=== PATIENT | female | born 1975 | race Caucasian/White ===

== ENCOUNTER → 2017-06-10 | Outpatient (CLI) | payer OTHER ==
--- NOTE | 2017-06-11 07:57 | MAMMOGRAPHY REPORT ---
BILATERAL DIGITAL SCREENING MAMMOGRAM TOMOSYNTHESIS WITH CAD: 06/10/2017 CLINICAL HISTORY: Routine screening examination. TECHNIQUE: Breast tomosynthesis in addition to standard 2D mammography was performed. Current study was also evaluated with a Computer Aided Detection (CAD) system. COMPARISON: Comparison is made to exams dated: 11/03/2015 mammogram, 07/05/2014 mammogram - [facility], 05/12/2013 mammogram, and 09/15/2009 mammogram. BREAST COMPOSITION: There are scattered areas of fibroglandular density in both breasts. FINDINGS: The parenchymal pattern is unchanged. No developing mass, architectural distortion or clus ter of suspicious microcalcifications is seen in either breast. IMPRESSION: ACR BI-RADS CATEGORY 2: BENIGN There is no mammographic evidence of malignancy. A 1 year screening mammogram is recommended. The pa tient will receive written notification of the results. Approximately 10% of breast cancers are not detected with mammography. A negative mammographic report should not delay biopsy if a clinically suggestive mass is present. Rama Roque M.D. ay/:06/10/2017 15:47:11 Tool And Die Assembler: Phuong READ(Robert)(Pritesh), [facility] letter sent: Normal 1/2 BI-RADS Code: ACR BI-RADS Category 2: Benign
== END | disposition home or self-care (01) ==
LOC: C.MAMM 14:56
PROVIDERS: ATTEND Obstetrics & Gynecology
DX: Z12.31 Encounter for screening mammogram for malignant neoplasm of breast (principal)

== ENCOUNTER → 2017-07-21 | Outpatient (CLI) | payer OTHER ==
[~2017-07-21] MED LIST: DOXY50CA26 PO
== END | disposition home or self-care (01) ==
LOC: C.PATHSPEC 17:40
PROVIDERS: ATTEND Obstetrics & Gynecology
DX: N93.9 Abnormal uterine and vaginal bleeding, unspecified (principal)

== ENCOUNTER → 2017-07-28 | Day surgery (SDC) | payer OTHER ==
[2017-07-25 08:03] VITALS: Ht 160 cm; Wt 90.9 kg
--- NOTE | 2017-07-26 12:16 | HISTORY & PHYSICAL EXAMINATION ---
DATE OF ADMISSION: 07/28/2017 The patient is for surgery on 07/28/2017. CHIEF COMPLAINT: Abnormal uterine bleeding. HISTORY OF PRESENT ILLNESS: The patient is a 41-year-old white female 2, para 2 who is status post tubal. The patient has been having abnormal uterine bleeding over the past year with as much as 1 week of light bleeding before the onset of her menses which are lasting now at least 1 week. She is passing clots with her menses. She has been noted to have thickened endometrial lining on ultrasound September 2015 and again in June 2017. Hysterosonogram January 2016 failed to show any endometrial mass. An endometrial biopsy was done 07/21/2017 and this was read as proliferative endometrium. Pap smear done May 2017 was negative. The patient does not want to use hormone therapy. She prefers surgical treatment of her bleeding and wishes to undergo endometrial ablation. ALLERGIES: THE PATIENT REPORTS ALLERGIES TO DEMEROL AND MORPHINE DERIVATIVES. MEDICATIONS: The patient takes doxycycline 100 mg daily. PAST SURGICAL HISTORY: She has had a tubal ligation. In addition, cholecystectomy, appendectomy as well as cryosurgery of her cervix. She has also undergone diagnostic laparoscopy. She has had dental extractions as well. She is taking the doxycycline for rosacea. ILLNESSES: Beyond her abnormal uterine bleeding the patient does report migraine headaches. She also has a history of anxiety. FAMILY HISTORY: Her mother was diagnosed with breast cancer at age 48 and from that disease. Her paternal grandfather had colon cancer. There is no family history of uterine cancer. SOCIAL HISTORY: The patient is . She has smoked in the past, but is not a current smoker. She reports social alcohol use. PHYSICAL EXAMINATION: VITAL SIGNS: Height 5 foot 3 inches, weight 199 pounds, blood pressure 120/78. HEAD, EYES, EARS, NOSE, AND THROAT: Grossly within normal limits. NECK: Supple without masses. CHEST: Her lungs are clear without wheezing. HEART: Regular rate and rhythm. No murmurs, gallops or rubs. ABDOMEN: Soft and nontender. PELVIC: External genitalia normal. Vagina pink and stimulated. Cervix pink and closed with no lesions visible. Uterus within normal limits size, nontender, adnexa nontender with no masses palpable. EXTREMITIES: No cyanosis, clubbing or edema. IMPRESSION: A 41-year-old white female 2, para 2 with abnormal uterine bleeding. PLAN: The patient is for hysteroscopic guided endometrial ablation by roller ball or NovaSure method with or without dilation and curettage with or without removal of endometrial polyp/lesion. We have discussed the risks of bleeding, infection, perforation of the uterus, damage to internal organs, possible need for further treatment and possible failure of the procedure. The patient wishes to proceed with the planned surgery. MARY
[~2017-07-28] VITALS: Ht 160 cm; Wt 90.9 kg
[~2017-07-28] MED LIST changes: +ATROPINE SULFATE 0.1 MG/ML 5ML SYR IV PRN; +DEXAMETHASONE SOD INJ 4 MG/ML VIAL ONE; +EpHEDrine SULFATE INJ 50 MG/ML AMP IV PRN; +FENTANYL CITRATE INJ 50 MCG/1 ML 2 ML VIAL IV PRN; +FENTANYL CITRATE INJ 50 MCG/1 ML 2 ML VIAL ONE; +HYDROmorphone INJ 1 MG/ML SYR IV PRN; +IBUPROFEN 200 MG TAB ONE; +IBUPROFEN 600 MG TAB PO PRN; +LACTATED RINGER'S 1000ML 1,000 ML IV SCH; +LIDOCAINE HCL 2% 2 ML VIAL (20MG/ML) ONE; +MIDAZOLAM HCL 1 MG/ML 2ML VIAL ONE; +ONDANSETRON INJ 2 MG/ML 2 ML VIAL IV PRN; +ONDANSETRON INJ 2 MG/ML 2 ML VIAL ONE; +PROMETHAZINE HCL INJ 12.5 MG in SODIUM CHLORIDE 0.9% 50ML 50 ML IV PRN; +PROPOFOL IV EMULSION 10 MG/ML 20 ML VIAL IV ONE; +SODIUM CHLORIDE 0.9% 1000ML 1,000 ML IV SCH
--- NOTE | 2017-07-28 08:45 | History & Physical Bridge - SC ---
H&P Re-Evaluation Bridge Note: I have examined the patient, reviewed the History & Physical and in the interval since the performance of the History & Physical I have noted the following changes of clinical significance: No changes noted
--- NOTE | 2017-07-28 09:35 | [facility] Post Operative Brief Note ---
Immediate Operative Summary Operative Date Jul 28, 2017. Pre-Operative Diagnosis Abnormal Uterine Bleeding Post-Operative Diagnosis Same Procedure(s) Performed Dilatation & Curettage, Hysteroscopy, Endometrial Ablation with Novasure Surgeon Dr. Ansari [employer] Crossing Guard Supervisor Surgeon(s) None Estimated Blood Loss 25 ml Findings See dictated note. Specimens A.) Endometrial Curettings Complication(s) None Disposition Recovery Room / PACU
--- NOTE | 2017-07-28 09:43 | Discharge Instructions-SurgCtr ---
Discharge Instructions Date of Service Jul 28, 2017. Visit Reason for Visit: Abnormal Uterine Bleeding Discharge Discharge Diagnosis / Problem: S/P Hysteroscopy, D&C, Endometrial ablation with Novasure Discharge Goals Goal(s): Diagnostic testing, Therapeutic intervention Activity Recommendations Activity Limitations: per Instructions/Follow-up section ACTIVITY RECOMMENDATIONS: * Avoid tampons, douching, hot tubs, pools, and intercourse until bleeding has stopped. * May shower as usual. * No strenuous activity for 24-48 hours. After 24-48 hours, you can do anything you feel like doing (driving and sports are okay). RETURN TO SCHOOL/WORK: * You may return to school or work after 24-48 hours unless specified by your physician. DIET: * Resume previous diet. MEDICATIONS: Resume previous medications unless instructed otherwise by your surgeon. Ibuprofen 200mg 2-3 tablets every 4-6 hours as needed --OR-- Aleve 2 tablets every 8-12 hours as needed for post-operative discomfort Medications are over the counter. Tylenol may be used if above medications are contraindicated or not preferred. Medication should be taken with food or milk. do not take on an empty stomach. SPECIAL CARE INSTRUCTIONS: * Check temperature twice daily for one week. Report any elevation over 100.4 degrees. * Call office if you experience increased pelvic pain or discomfort not relieved by pain medicine, if you have foul smelling vaginal discharge, if you have bleeding that is heavier than a normal menstrual flow. If you are changing a maxi pad every 1- 2 hours, this is too heavy. vaginal spotting is normal for 1-2 weeks. FOLLOW UP VISIT: Call your doctor's office for a post-operative visit in about 4 weeks. [phone] Dr Ansari Anesthesia . Post Anesthesia Instructions: If you have had General Anesthesia or IV Sedation: * Do not drive today. * Resume driving when surgeon permits. * Do not make important decisions or sign legal documents today. * Call surgeon for: 1. Temperature elevations greater than 101 degrees F. 2. Uncontrollable pain. 3. Excessive bleeding. 4. Persistent nausea and vomiting. 5. Medication intolerance (nausea, vomiting or rash). * For nausea and vomiting use only clear liquids such as: tea, soda, bouillon until nausea subsides, then gradually increase diet as tolerated. * If you have any concerns or questions, call your surgeon's office. If physician is unavailable and it is an emergency, call 911 or go to the nearest emergency room. . Diet Recommendations Home Diet: resume previous diet Procedures Procedures Performed: Dilatation & Curettage, Hysteroscopy, Endometrial Ablation with Novasure Pending Studies Studies pending at discharge: yes List of pending studies: Endometrial tissue sent to pathology. The report on this tissue should be back in about a week. The office will call you with that result. Medical Emergencies . Who to Call and When: Medical Emergencies: If at any time you feel your situation is an emergency, please call 911 immediately. . Non-Emergent Contact Non-Emergency issues call your: [employer] T[employer] Setter Call Non-Emergent contact if: temperature is above 100.5, your pain is worsening . . "Provider Documentation" section prepared by Joelle Ansari. .
[2017-07-28 10:34] VITALS: TEMP 36.5
--- NOTE | 2017-07-28 10:58 | OPERATIVE REPORT ---
DATE OF OPERATION: 07/28/2017 PREOPERATIVE DIAGNOSIS: Abnormal uterine bleeding with menorrhagia. POSTOPERATIVE DIAGNOSIS: Same. PROCEDURE: Dilation and curettage, hysteroscopy and endometrial ablation with NovaSure. SURGEON: Dr. Joelle Ansari. ANESTHESIA: General. ANESTHESIOLOGIST: Dr. Day. DESCRIPTION OF PROCEDURE: The patient was taken to the operating room where general anesthesia was administered. After an adequate level was obtained, she was placed in dorsal lithotomy position. Vulva, vagina, and cervix were prepped with Betadine solution. The bladder was drained with a straight catheter. Weighted speculum was placed in the posterior fornix of the vagina. Endocervical curettings were obtained, but these were scant. The uterus sounded to 9.5 cm in depth. The cervix was dilated to allow a hysteroscope to be admitted. Hysteroscope was used and the endometrial lining appeared thickened, but there were no masses and the cavity was smooth. Measurement of the cervix was noted to be 5.5 cm in length. Endometrial curettage was then carried out with the serrated curette and a moderate to large amount of tissue obtained. The endocervical curettings were sent together with the endometrial curettings to pathology. NovaSure was then introduced into the endometrial cavity. The instrument was expanded and the width of the endometrial cavity was noted to be 4.5 cm. CO2 test was then undertaken and passed. The NovaSure was activated and remained active for 2 minutes exactly. The NovaSure instrument was then removed from the endometrial cavity. Hysteroscope was used to visualize the cavity. ESTIMATED BLOOD LOSS: 25 mL I attest to the content of the Intraoperative Record and any orders documented therein. Any exceptions are noted below. [facility]
[2017-07-28 11:04] VITALS: BP 118/78; PULSE 70; O2SAT 100
--- NOTE | 2017-07-28 11:12 | Anesthesia Progress Nt - [facility] ---
Anesthesia Post Op Note Date & Time Jul 28, 2017 at 11:12 Vital Signs Pain Intensity: 1 Vital Signs Past 12 Hours Date Time Temp Pulse Resp B/P (MAP) Pulse Ox O2 Delivery O2 Flow Rate FiO2 07/28/17 11:04 70 16 118/78 (91) 100 Room Air 07/28/17 10:34 36.5 65 16 111/73 (86) 100 Room Air 07/28/17 10:28 67 12 07/28/17 10:28 65 12 100 07/28/17 10:27 69 13 100 07/28/17 10:27 67 13 07/28/17 10:26 121/73 07/28/17 10:24 36.7 77 16 121/73 100 Room Air 07/28/17 10:22 67 14 07/28/17 10:22 69 14 100 07/28/17 10:21 118/75 07/28/17 10:17 71 13 07/28/17 10:17 69 13 100 07/28/17 10:16 81 18 100 07/28/17 10:16 78 18 07/28/17 10:15 79 14 07/28/17 10:15 72 14 126/81 100 07/28/17 10:14 87 16 07/28/17 10:14 87 16 100 07/28/17 10:10 119/70 07/28/17 10:09 77 12 07/28/17 10:09 77 12 100 07/28/17 10:08 71 18 07/28/17 10:08 72 18 100 07/28/17 10:06 115/82 07/28/17 10:03 76 11 07/28/17 10:03 73 11 100 07/28/17 10:02 99 14 07/28/17 10:02 105 14 100 07/28/17 10:01 121/70 07/28/17 09:58 94 10 07/28/17 09:58 95 10 100 07/28/17 09:57 92 11 07/28/17 09:57 90 11 100 07/28/17 09:56 130/70 07/28/17 09:52 89 14 100 07/28/17 09:52 89 14 07/28/17 09:51 131/80 07/28/17 09:50 108 17 100 07/28/17 09:50 108 17 07/28/17 09:46 141/68 07/28/17 09:45 36.2 100 20 141/68 100 Mask 10 07/28/17 08:05 36.5 77 16 116/78 (91) 100 Room Air Notes Mental Status: alert / awake / arousable, participated in evaluation Pt Amnestic to Procedure: Yes Nausea / Vomiting: adequately controlled Pain: adequately controlled Airway Patency, RR, SpO2: stable & adequate BP & HR: stable & adequate Hydration State: stable & adequate Anesthetic Complications: no major complications apparent
== END | disposition home or self-care (01) ==
LOC: X.SURG 07:20
PROVIDERS: ATTEND Obstetrics & Gynecology
DX: N92.0 Excessive and frequent menstruation with regular cycle (principal); Z80.3 Family history of malignant neoplasm of breast; Z98.51 Tubal ligation status